=== PATIENT | female | born 1945 | race African-American/Black ===

== ENCOUNTER 2016-12-05 07:25 | Emergency (ER) | payer MEDICARE ==
[~2016-12-05] VITALS: Ht 170.2 cm; Wt 90.3 kg
[~2016-12-05 07:25] MED LIST: AMLO5TAB2 PO; GLIP5TAB10 PO; HYDR200T PO; LOSA50TA6 PO
--- NOTE | 2016-12-05 08:06 | PHYS DOC ---
Past Medical History Past Medical History: Diabetes-Type II, Hypertension, Other Additional Past Medical Histor: lupus Past Surgical History: Other Additional Past Surgical Histo: pericardial effusion Alcohol Use: None Drug Use: None Adult General Chief Complaint Chief Complaint: NAUSEA/VOMITING/DIARRHA HPI HPI Patient is a 71 year old female presents to the emergency department with a history of vomiting and diarrhea. Patient states she started vomiting at 0400 this morning and has vomited so many times that she could not remember. Patient states she has had 2 diarrhea stools. Patient denies blood in either emesis or stool. Patient c/o dizziness. Denies fever, chills, SOA, chest pain or bilateral lower extremity swelling. Patient does have a history of HTN and took her medications last night. Review of Systems Review of Systems Constitutional: Denies fever or chills [] Eyes: Denies change in visual acuity, redness, or eye pain [] HENT: Denies nasal congestion or sore throat [] Respiratory: Denies cough or shortness of breath [] Cardiovascular: No additional information not addressed in HPI [] GI: Denies abdominal pain, C/o nausea, vomiting, and diarrhea [] : Denies dysuria or hematuria [] Musculoskeletal: Denies back pain or joint pain [] Integument: Denies rash or skin lesions [] Neurologic: Denies headache, focal weakness or sensory changes [] Endocrine: Denies polyuria or polydipsia [] Current Medications Current Medications Current Medications Medications (Trade) Dose Ordered Sig/Stacey Start Time Stop Time Status Last Admin Dose Admin Ondansetron HCl (Zofran) 4 mg 1X ONCE 12/05/16 08:15 12/05/16 08:17 DC 12/05/16 08:23 4 MG Sodium Chloride 1,000 ml @ 1,000 mls/hr 1X ONCE 12/05/16 08:15 12/05/16 09:14 DC 12/05/16 08:22 1,000 MLS/HR Allergies Allergies Allergies Coded Allergies Type Severity Reaction Last Updated Verified No Known Drug Allergies 10/12/15 No Physical Exam Physical Exam Constitutional: Well developed, well nourished, no acute distress, non-toxic appearance. [] HENT: Normocephalic, atraumatic, bilateral external ears normal, oropharynx moist, no oral exudates, nose normal. [] Eyes: PERRLA, EOMI, conjunctiva normal, no discharge. [] Neck: Normal range of motion, no tenderness, supple, no stridor. [] Cardiovascular:Heart rate regular rhythm, no murmur [] Lungs & Thorax: Bilateral breath sounds clear to auscultation [] Abdomen: Bowel sounds hypoactive, soft, no tenderness, no masses, no pulsatile masses, no rebound tenderness, no guarding. [] Skin: Warm, dry, no erythema, no rash. [] Back: No tenderness Extremities: No tenderness, no cyanosis, no clubbing, ROM intact, no edema. [] Neurologic: Alert and oriented X 3, normal motor function, normal sensory function, no focal deficits noted. [] Psychologic: Affect normal, judgement normal, mood normal. [] Current Patient Data Vital Signs Vital Signs Date Time Temp Pulse Resp B/P (MAP) Pulse Ox O2 Delivery O2 Flow Rate FiO2 12/05/16 07:45 98.2 78 16 175/81 (112) 97 Room Air 98.2 Lab Values Laboratory Tests Test 12/05/16 08:00 12/05/16 08:15 Urine Collection Type Unknown Urine Color Yellow Urine Clarity Clear Urine pH 5.5 Urine Specific Wiseman >=1.030 Urine Protein Negative mg/dL (NEG-TRACE) Urine Glucose (UA) Negative mg/dL (NEG) Urine Ketones (Stick) Negative mg/dL (NEG) Urine Blood Negative (NEG) Urine Nitrite Negative (NEG) Urine Bilirubin Negative (NEG) Urine Urobilinogen Dipstick 0.2 mg/dL (0.2 mg/dL) Urine Leukocyte Esterase Trace (NEG) Urine RBC 0 /HPF (0-2) Urine WBC Occ /HPF (0-4) Urine Squamous Epithelial Cells Mod /LPF Urine Bacteria 0 /HPF (0-FEW) Urine Mucus Mod /LPF White Blood Count 11.5 x10^3/uL (4.0-11.0) H Red Blood Count 4.80 x10^6/uL (3.50-5.40) Hemoglobin 14.8 g/dL (12.0-15.5) Hematocrit 43.8 % (36.0-47.0) Mean Corpuscular Volume 91 fL (79-100) Mean Corpuscular Hemoglobin 31 pg (25-35) Mean Corpuscular Hemoglobin Concent 34 g/dL (31-37) Red Cell Distribution Width 14.5 % (11.5-14.5) Platelet Count 212 x10^3/uL (140-400) Neutrophils (%) (Auto) 88 % (31-73) H Lymphocytes (%) (Auto) 6 % (24-48) L Monocytes (%) (Auto) 6 % (0-9) Eosinophils (%) (Auto) 1 % (0-3) Basophils (%) (Auto) 0 % (0-3) Neutrophils # (Auto) 10.1 x10^3uL (1.8-7.7) H Lymphocytes # (Auto) 0.6 x10^3/uL (1.0-4.8) L Monocytes # (Auto) 0.7 x10^3/uL (0.0-1.1) Eosinophils # (Auto) 0.1 x10^3/uL (0.0-0.7) Basophils # (Auto) 0.0 x10^3/uL (0.0-0.2) Platelet Estimate Pending Sodium Level 140 mmol/L (136-145) Potassium Level 4.1 mmol/L (3.5-5.1) Chloride Level 105 mmol/L (98-107) Carbon Dioxide Level 26 mmol/L (21-32) Anion Gap 9 (6-14) Blood Urea Nitrogen 27 mg/dL (7-20) H Creatinine 0.9 mg/dL (0.6-1.0) Estimated GFR (Cockcroft-Gault) 74.3 BUN/Creatinine Ratio 30 (6-20) H Glucose Level 238 mg/dL (70-99) H Calcium Level 8.2 mg/dL (8.5-10.1) L Total Bilirubin 0.7 mg/dL (0.2-1.0) Aspartate Amino Transferase (AST) 23 U/L (15-37) Alanine Aminotransferase (ALT) 26 U/L (14-59) Alkaline Phosphatase 76 U/L (46-116) Troponin I Quantitative < 0.017 ng/mL (0.000-0.055) Total Protein 6.7 g/dL (6.4-8.2) Albumin 3.5 g/dL (3.4-5.0) Albumin/Globulin Ratio 1.1 (1.0-1.7) Laboratory Tests 12/05/16 08:15 Laboratory Tests 12/05/16 08:15 EKG EKG EKG completed at 0800 with HR 76 sinus rhythm noted no STEMI per Dr Hector.[] Radiology/Procedures Radiology/Procedures [] Course & Med Decision Making Course & Med Decision Making Pertinent Labs and Imaging studies reviewed. (See chart for details) 0832 Patient with CBC normal with UA positive for leukocyte estrace. 0957 patient states her nausea is feeling much better. She will be given a by mouth challenge here in the emergency department with anticipation to discharge home. States she would prefer to go home as to be admitted into the hospital. She'll be encouraged to drink clear liquid diet for the next 24 hours as well as Imodium for diarrhea. She'll be provided with Zofran. Recommended following up with primary care physician next 2-3 days. Return back to emergency department sign symptoms of become worse. Patient agrees with discharge instructions, treatment regimens and follow-up recommendations. All questions and concerns was answered at patient's bedside. [] Dragon Disclaimer Dragon Disclaimer This electronic medical record was generated, in whole or in part, using a voice recognition dictation system. Departure Departure Impression: Primary Impression: Vomiting and diarrhea Disposition: HOME, SELF-CARE Condition: STABLE Referrals: MIKE COLLAZO MD (PCP) Patient Instructions: Diarrhea, Hxaz-qv-Tide, Diet for Diarrhea, Adult, Nausea and Vomiting, Jbsw-cr-Lqsg Additional Instructions: Activity as tolerated. Medications as prescribed. Clear liquid diet for the next 24 hours. You may take Imodium gveu-mdm-uxveggf for diarrhea. Follow-up with your primary care physician in the next 2-3 days. Return back to emergency prior signs symptoms of become worse. Scripts Ondansetron (ZOFRAN ODT) 4 Mg Tab.rapdis 1 TAB SL Q8HRS, #10 TAB Prov: CLAIRE PEÑA APRN 12/05/16 CLAIRE PEÑA APRN Dec 05, 2016 08:06
[2016-12-05 08:09] LABS: BILIRUBIN,URINE NEGATIVE (NEG); GLUCOSE,URINE NEGATIVE (NEG); NITRITE,URINE NEGATIVE (NEG); PH,URINE 5.5; PROTEIN,URINE NEGATIVE (NEG-TRACE); UROBILINOGEN,URINE 0.2 mg/dL (0.2 mg/dL)
[2016-12-05] MEDS ORDERED: IV NORMAL SALINE 1000ML BAG 1,000 ML IV ONE (08:15)
[2016-12-05] MEDS ORDERED: ONDANSETRON PF 4 MG/2 ML VIAL. IV ONE (08:15)
[2016-12-05] MEDS ORDERED: ONDANSETRON PF 4 MG/2 ML VIAL. ONE (08:15)
[2016-12-05 08:25] LABS: BACTERIA,URINE 0 /HPF (0-FEW); RBC,URINE 0 /HPF (0-2); SQUAMOUS EPITHELIAL CELL,UR MOD /LPF; WBC,URINE OCC /HPF (0-4)
[2016-12-05 08:26] LABS: BASO % 0 % (0-3); EOS % 1 % (0-3); HEMATOCRIT 43.8 % (36.0-47.0); HEMOGLOBIN 14.8 g/dL (12.0-15.5); LYMPH # 0.6 x10^3/uL (1.0-4.8); LYMPH % 6 % (24-48); MEAN CORPUSCULAR HEMOGLOBIN 31 pg (25-35); MEAN CORPUSCULAR HGB CONC 34 g/dL (31-37); MEAN CORPUSCULAR VOLUME 91 fL (79-100); MONO % 6 % (0-9); NEUT % 88 % (31-73); PLATELET COUNT 212 x10^3/uL (140-400); RED CELL DISTRIBUTION WIDTH 14.5 % (11.5-14.5); WHITE BLOOD COUNT 11.5 x10^3/uL (4.0-11.0)
[2016-12-05 08:32] LABS: CALCIUM 8.2 mg/dL (8.5-10.1); CREATININE 0.9 mg/dL (0.6-1.0); GFR 74.3; POTASSIUM 4.1 mmol/L (3.5-5.1)
[2016-12-05 08:38] LABS: ALBUMIN 3.5 g/dL (3.4-5.0); ALBUMIN/GLOBULIN RATIO 1.1 (1.0-1.7); TOTAL BILIRUBIN 0.7 mg/dL (0.2-1.0); TOTAL PROTEIN 6.7 g/dL (6.4-8.2)
--- NOTE | 2016-12-05 08:56 | EKG ---
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
[2016-12-05] MEDS ORDERED: ONDA4TAB10 SL (09:59)
[2016-12-05 10:00] VITALS: BP 177/81
[2016-12-05 10:40] LABS: % EOS 2 % (0-5); PLT ESTIMATE ADEQUATE (ADEQUATE)
== END 2016-12-05 10:30 | disposition home or self-care (01) ==
LOC: ER 07:25
DX: R11.10 Vomiting, unspecified (principal); R19.7 Diarrhea, unspecified; E11.9 Type 2 diabetes mellitus without complications; I10 Essential (primary) hypertension; M32.9 Systemic lupus erythematosus, unspecified
CPT/HCPCS: 36415; 80053; 81001; 84484; 85007; 85025; 87086; 93005; 96361; 96374; 99285; J2405; J7030

== ENCOUNTER → 2017-03-15 | Outpatient (CLI) | payer MEDICARE ==
[~2017-03-15] MED LIST changes: +ASCO500C PO; +ASPI-482 PO; +CHOL10003 PO; +IBUP-1060 PO; +ONDA4TAB10 SL; +SPIR1TAB2 PO; +[UNRECOGNIZED DRUG - OTHER]
[2017-03-15 10:43] LABS: CALCIUM 9.4 mg/dL (8.5-10.1); CREATININE 0.8 mg/dL (0.6-1.0); GFR 85.1; POTASSIUM 3.7 mmol/L (3.5-5.1)
[2017-03-15 10:50] LABS: ALBUMIN 3.6 g/dL (3.4-5.0); ALBUMIN/GLOBULIN RATIO 1.2 (1.0-1.7); BASO % 1 % (0-3); EOS % 5 % (0-3); HEMATOCRIT 42.7 % (36.0-47.0); LYMPH # 1.8 x10^3/uL (1.0-4.8); LYMPH % 45 % (24-48); MEAN CORPUSCULAR HEMOGLOBIN 31 pg (25-35); MEAN CORPUSCULAR HGB CONC 33 g/dL (31-37); MEAN CORPUSCULAR VOLUME 93 fL (79-100); MONO % 10 % (0-9); NEUT % 40 % (31-73); PLATELET COUNT 229 x10^3/uL (140-400); RED BLOOD COUNT 4.59 x10^6/uL (3.50-5.40); RED CELL DISTRIBUTION WIDTH 14.6 % (11.5-14.5); TOTAL BILIRUBIN 0.8 mg/dL (0.2-1.0); TOTAL PROTEIN 6.7 g/dL (6.4-8.2); WHITE BLOOD COUNT 4.1 x10^3/uL (4.0-11.0)
[2017-03-15 11:32] LABS: PROTHROMBIN TIME PATIENT 12.2 SEC (11.7-14.0)
== END | disposition home or self-care (01) ==
LOC: EDSTATUS 09:30 → SURG 09:36
PROVIDERS: ATTEND Specialist
DX: Z01.818 Encounter for other preprocedural examination (principal)
CPT/HCPCS: 36415; 80053; 85025; 85610; 85730

== ENCOUNTER → 2017-05-29 | Outpatient (CLI) | payer MEDICARE ==
[2017-05-29 15:02] LABS: ADD MAN DIFF? NO
[2017-05-29 15:12] LABS: BASO # 0.1 x10^3/uL (0.0-0.2); BASO % 1 % (0-3); EOS # 0.2 x10^3/uL (0.0-0.7); EOS % 4 % (0-3); HEMATOCRIT 40.5 % (36.0-47.0); HEMOGLOBIN 13.7 g/dL (12.0-15.5); LYMPH # 2.7 x10^3/uL (1.0-4.8); LYMPH % 49 % (24-48); MEAN CORPUSCULAR HEMOGLOBIN 31 pg (25-35); MEAN CORPUSCULAR HGB CONC 34 g/dL (31-37); MEAN CORPUSCULAR VOLUME 91 fL (79-100); MONO # 0.6 x10^3/uL (0.0-1.1); MONO % 10 % (0-9); NEUT % 37 % (31-73); PLATELET COUNT 220 x10^3/uL (140-400); RED BLOOD COUNT 4.48 x10^6/uL (3.50-5.40); RED CELL DISTRIBUTION WIDTH 14.3 % (11.5-14.5); WHITE BLOOD COUNT 5.5 x10^3/uL (4.0-11.0)
[2017-05-29 15:28] LABS: ALBUMIN 3.7 g/dL (3.4-5.0); ALK PHOS 89 U/L (46-116); ALT (SGPT) 33 U/L (14-59); AMYLASE 77 U/L (25-115); ANION GAP 9 (6-14); AST (SGOT) 33 U/L (15-37); BLOOD UREA NITROGEN 23 mg/dL (7-20); BUN/CREATININE RATIO 29 (6-20); CALCIUM 9.5 mg/dL (8.5-10.1); CARBON DIOXIDE 27 mmol/L (21-32); CHLORIDE 102 mmol/L (98-107); CREATININE 0.8 mg/dL (0.6-1.0); GFR 84.8; GLUCOSE 86 mg/dL (70-99); POTASSIUM 3.9 mmol/L (3.5-5.1); SODIUM 138 mmol/L (136-145); TOTAL BILIRUBIN 0.7 mg/dL (0.2-1.0); TOTAL PROTEIN 7.4 g/dL (6.4-8.2)
== END | disposition home or self-care (01) ==
LOC: LAB 14:43
DX: K80.80 Other cholelithiasis without obstruction (principal)
CPT/HCPCS: 36415; 80053; 82150; 85025

== ENCOUNTER → 2018-10-29 | Outpatient (CLI) | payer MEDICARE ==
[2017-03-22 15:00] VITALS: BP 132/74
[~2018-10-29] MED LIST changes: +AMLO5TAB10 PO; -AMLO5TAB2 PO; -HYDR200T PO; +HYDR200T71 PO; +LOSA-73 PO; -LOSA50TA6 PO
[2018-10-29 16:18] LABS: CREATININE,RANDOM URINE 14.1 mg/dL (Not Establ.)
== END | disposition home or self-care (01) ==
LOC: LAB 13:53
PROVIDERS: ATTEND Pediatrics
DX: M32.9 Systemic lupus erythematosus, unspecified (principal)
CPT/HCPCS: 82570; 84156

== ENCOUNTER → 2020-11-16 | Outpatient (CLI) | payer MEDICARE ==
[2017-03-22 15:00] VITALS: BP 132/74
[~2020-11-16] MED LIST changes: +AMLO-186 PO; -AMLO5TAB10 PO; +REGADENOSON 0.4 MG/5 ML DISP.SYRIN. IV ONE
--- NOTE | 2020-11-16 16:38 | RAD ---
MR#: [id number] Date of Study: 11/16/2020 Ordering Physician: KENRICK PULIDO, Referring Physician: RICHARD GRIFFITHS Tech: RT Kathleen Galaviz) (N) APPROVED REPORT Test Type: Pharmacological Stress Nurse/Tech: Perri Kamara R.N. Test Indications: chest pain Cardiac History: htn, dm Medications: see ehr Medical History: see ehr Resting ECG: SR with RBBB Resting Heart Rate: 55 bpm Resting Blood Pressure: 155/69mmHg Pretest Chest Pain: No chest pain Nurse/Tech Notes lungs cta, heart tones regular Consent: The procedure was explained to the patient in lay terms. Informed consent was witnessed. Keshawn eout was entered into [employer]. History and Stress Test performed by RT Kathleen Cotton) (N) Pharm. Details Pharmacologic stress testing was performed using 0.4mg per 5ml of regadenoson given intravenously ove r 7-10 seconds. Stress Symptoms No chest pain or symptoms. POST EXERCISE Reason for Termination: Infusion complete Target HR: No Max HR: 78 bpm Max Blood Pressure: 157/66mmHg Chest Pain: No. Arrhythmia: No. ST Change: No. INTERPRETATION Stress EKG Conclusion: No evidence of stress induced EKG changes. Imaging Protocol IMAGE PROTOCOL: Rest Tc-99m/stress Tc-99m 1 day Rest: Stress: Viability: Radiopharm.Tc99m VycwtjvyiIf91a Sestamibi Tinz16oAa 32.8mCi Duration 15min. 15min. Img Date 11/16/2020 11/16/2020 Inj-Img Ennw74lkh. 15min. Rest Admin Site:IV - Left HandAdministrator:RT Kathleen Galaviz)(N) Stress Admin Site: IV - Left HandAdministrator: RT Kathleen Cotton)(N) STRESS DATA End Diast. Vol.67.0mlAv. Heart Rate68.0bpm End Syst. Vol.5.0mlCO Index BSA0.0L/min Myocardial Mikh866.0gEject. Laybmrou69.0% Stress Rates Pk. Fill Rate2.33EDV/secLVtime Pk. Fill 227.48msec Pk. Empty Rate3.80ESV/secLVtime Pk. Leuat516.13msec / Pk. Fill1.34EDV/sec Stress Scores Regional WT0.00Summed WT0.00 Regional WM0.00Summed WM1.00 The rest and stress images show normal perfusion, normal contraction and thickening. LV Perf. Quant 17 Seg. SSS0.00 17 Seg. SRS0.00 17 Seg. SDS0.00 Stress Defect Extent (% LAD)0.00Rest Defect Extent (% LAD)0.00Rev. Defect Extent (% LAD)0.00 Stress Defect Extent (% LCX) 0.00Rest Defect Extent (% LCX)0.00Rev. Defect Extent (% LCX)0.00 Stress Defect Extent (% RCA)0.00Rest Defect Extent (% RCA)0.00Rev. Defect Extent (% RCA)0.00 Stress Defect Extent (% YVETTE)0.00Rest Defect Extent (% YVETTE)0.00Rev. Defect Extent (% YVETTE)0.00 Other Information Quality:Average Risk Assessment: Low Risk Conclusion 1. No evidence of EKG changes with stress testing. 2. Normal perfusion at stress/rest. 3. Low risk study. 4. EF > 60%. Signed by : Jaspal Sarabia, Electronically Approved : 11/16/2020 16:38:04
--- NOTE | 2020-11-16 16:46 | CARD ---
MR#: [id number] Date of Study: 11/16/2020 Ordering Physician: KENRICK PULIDO, Referring Physician: KENRICK PULIDO Tech: Odalys Landeros [facility] APPROVED REPORT EXAM: Two-dimensional and M-mode echocardiogram with Doppler and color Doppler. Other Information Quality : FairHR: 66bpm Rhythm : NSRTechnically limited study due to body habitus. INDICATION Hypertension/HCVD RISK FACTORS Hypertension 2D DIMENSIONS Left Atrium(2D)4.7 (1.6-4.0cm)IVSd1.2 (0.7-1.1cm) Aortic Root(2D)3.0 (2.0-3.7cm)LVDd4.0 (3.9-5.9cm) LVOT Diameter2.0 (1.8-2.4cm)PWd1.1 (0.7-1.1cm) IVSs2.1 (0.8-1.2cm)LVDs2.1 (2.5-4.0cm) FS (%) 48.0 %PWs1.7 (0.8-1.2cm) SV56.9 mlLVEF(%)79.9 (>50%) Aortic Valve AoV Peak Trav.177.2cm/sAoV VTI33.9cm AO Peak GR.12.6mmHgLVOT Peak Trav.140.4cm/s LVOT VTI 34.11cmAO Mean GR.7mmHg TALI (VMAX)1.03yo7CPL (VTI)3.24cm2 Mitral Valve MV E Qcoelnpf579.8cm/sMV DECEL ZBSL623sn MV A Qzmumefj151.8cm/sMV CBA73ij E/A Ratio0.9MVA (PHT)2.33cm2 Tricuspid Valve TR P. Hepisyku382vc/sTR Peak Gr.20mmHg LEFT VENTRICLE The left ventricle is normal size. There is mild concentric left ventricular hypertrophy. The left ve ntricular systolic function is normal and the ejection fraction is within normal range. Estimated eje ction fraction 60%. There is normal LV segmental wall motion. Transmitral Doppler flow pattern is Gra de I-abnormal relaxation pattern. RIGHT VENTRICLE The right ventricle is normal size. There is normal right ventricular wall thickness. The right ventr icular systolic function is normal. ATRIA The left atrium size is normal. The right atrium size is normal. The interatrial septum is intact wit h no evidence for an atrial septal defect or patent foramen ovale as noted on 2-D or Doppler imaging. AORTIC VALVE The aortic valve is calcified and not well visualized. Doppler and Color Flow revealed no significant aortic regurgitation. There is no significant aortic valvular stenosis. MITRAL VALVE The mitral valve is calcified. There is no evidence of mitral valve prolapse. There is no mitral valv e stenosis. Doppler and Color-flow revealed mild mitral regurgitation. TRICUSPID VALVE The tricuspid valve is normal in structure and function. Doppler and Color Flow revealed no tricuspid valve regurgitation noted. There is no tricuspid valve stenosis. PULMONIC VALVE Doppler and Color Flow revealed mild pulmonic valvular regurgitation. There is no pulmonic valvular s tenosis. GREAT VESSELS The aortic root is normal in size. The ascending aorta is normal in size. The IVC is normal in size a nd collapses >50% with inspiration. PERICARDIAL EFFUSION There is no evidence of significant pericardial effusion. Critical Notification Critical Value: No <Conclusion> The left ventricular systolic function is normal and the ejection fraction is within normal range. E stimated ejection fraction 60%. There is normal LV segmental wall motion. Signed by : Jaspal Sarabia, Electronically Approved : 11/16/2020 16:46:08
== END ==
LOC: NM 07:56
PROVIDERS: ATTEND Internal Medicine Cardiovascular Disease
DX: I08.8 Other rheumatic multiple valve diseases (principal); R94.31 Abnormal electrocardiogram [ECG] [EKG]; R07.9 Chest pain, unspecified; I10 Essential (primary) hypertension; E11.9 Type 2 diabetes mellitus without complications
CPT/HCPCS: 78452; 93017; 93306; A9500; J2785